=== PATIENT | female | born 1985 | race Caucasian/White ===

== ENCOUNTER 2017-04-14 22:28 | Emergency (ER) | payer OTHER ==
[~2017-04-14] VITALS: Ht 152.4 cm; Wt 113.4 kg
[~2017-04-14 22:28] MED LIST: ANAPROX DS550 MG PO; ANAPROX-DS550 MG PO; ATIVAN0.5 MG PO; BACTRIM DS 8001 TA1 PO; BENTYL10 MG PO; BP MED; CALCIUM500 MG PO; CIPRO500 MG PO; CLARITIN-D 10 M1 T21 PO; CLONAZEPAM0.5 M1 PO; CYCLOBENZAPRINE10 MG PO; DOXYCYCLINE HY100 M3 PO; DYAZIDE 25 MG-31 CAP PO; FLAGYL 500 MG500 MG PO; FLEXERIL5 MG PO; Fioricet 325 MG1 TAB PO; HYDROCODONE BIT1 T11 PO; IBU800 M1 PO; INDERAL80 MG PO; KEFLEX500 MG PO; MOTRIN800 MG PO; NAPROSYN500 MG PO; NILSTAT,MY500000 UN/ PO; ORTHO TRI-CYCLE1 TA1 PO; PENICILLIN VK500 MG PO; PERCOCET 325 MG1 TA2 PO; PREDNICOT10 MG PO; PREDNISONE20 MG PO; PROAIR HFA0.09 MG/AC INH; PROTONIX40 MG PO; PYRIDIUM200 M1 PO; REGLAN10 M1 PO; ROBITUSSIN DM 105 ML PO; SEPTRA DS 800 M1 TAB PO; TESSALON PERLE100 M1 PO; TRAMADOL HCL50 MG PO; ULTRAM50 MG PO; VICODIN 5/500 505 MG PO; VITAMIN D1000 IU PO; WELLBUTRIN SR150 MG PO; XANAX0.25 MG PO; ZITHROMAX Z PA250 MG PO; ZOLOFT PO; [UNRECOGNIZED DRUG - OTHER] PO
[2017-04-14] MEDS ORDERED: VITAMIN D50000 UNIT PO (22:43)
[2017-04-14] MEDS ORDERED: Motrin,Rufen800 MG PO (22:43)
[2017-04-14] MEDS ORDERED: BUPROPION HYDR100 MG PO (22:44)
[2017-04-14] MEDS ORDERED: PREDNISONE10 MG PO (23:43)
[2017-04-14] MEDS ORDERED: CYCLOBENZAPRINE10 MG PO (23:43)
== END 2017-04-14 23:44 | disposition home or self-care (01) ==
LOC: ED 22:28
DX: S13.9XXA Sprain of joints and ligaments of unspecified parts of neck, initial encounter (principal); F17.200 Nicotine dependence, unspecified, uncomplicated; Z98.890 Other specified postprocedural states; Z79.899 Other long term (current) drug therapy; Z88.0 Allergy status to penicillin; Z88.8 Allergy status to other drugs, medicaments and biological substances; X58.XXXA Exposure to other specified factors, initial encounter; Y93.89 Activity, other specified; Y92.89 Other specified places as the place of occurrence of the external cause; Y99.9 Unspecified external cause status

== ENCOUNTER 2017-04-23 02:47 | Emergency (ER) | payer OTHER ==
[~2017-04-23] VITALS: Ht 152.4 cm; Wt 104.3 kg
[~2017-04-23 02:47] MED LIST changes: +BUPROPION HYDR100 MG PO; +Motrin,Rufen800 MG PO; +PREDNISONE10 MG PO; +VITAMIN D50000 UNIT PO
[2017-04-23 03:18] LABS: BILIRUBIN NEGATIVE (NEGATIVE); BLOOD NEGATIVE (NEGATIVE); CLARITY SL CLOUDY (CLEAR); COLOR YELLOW (YELLOW); GLUCOSE NEGATIVE (NEGATIVE); KETONE NEGATIVE (NEGATIVE); LEUKO ESTERASE NEGATIVE (NEGATIVE); NITRITE NEGATIVE (NEGATIVE); PROTEIN NEGATIVE (NEGATIVE)
[2017-04-23 03:27] LABS: BACTERIA 3+; EPITHELIAL CELLS 30-35; URINE REFLEX COMMENT YES (NO)
== END 2017-04-23 04:47 | disposition home or self-care (01) ==
LOC: ED 02:47
PROVIDERS: Emergency Medicine
DX: R10.2 Pelvic and perineal pain (principal); F17.200 Nicotine dependence, unspecified, uncomplicated; Z98.890 Other specified postprocedural states; Z79.899 Other long term (current) drug therapy; Z88.0 Allergy status to penicillin; Z88.8 Allergy status to other drugs, medicaments and biological substances

== ENCOUNTER 2017-04-26 00:14 | Emergency (ER) | payer OTHER ==
[~2017-04-26] VITALS: Ht 162.5 cm; Wt 104.3 kg
[2017-04-26] MEDS ORDERED: BACTRIM DS 8001 TA1 PO (01:03)
[2017-04-26] MEDS ORDERED: DIFLUCAN150 MG PO (01:16)
== END 2017-04-26 01:21 | disposition home or self-care (01) ==
LOC: ED 00:14
DX: L02.415 Cutaneous abscess of right lower limb (principal); F17.200 Nicotine dependence, unspecified, uncomplicated; Z88.0 Allergy status to penicillin; Z88.8 Allergy status to other drugs, medicaments and biological substances; Z79.899 Other long term (current) drug therapy

== ENCOUNTER 2017-12-25 20:32 | Emergency (ER) | payer MEDICAID ==
[~2017-12-25] VITALS: Ht 152.4 cm; Wt 113.9 kg
[~2017-12-25 20:32] MED LIST changes: +DIFLUCAN150 MG PO
[2017-12-25] MEDS ORDERED: CEPHALEXIN500 M1 PO (21:02)
== END 2017-12-25 21:07 | disposition home or self-care (01) ==
LOC: ED 20:32
DX: O26.891 Other specified pregnancy related conditions, first trimester (principal); L05.01 Pilonidal cyst with abscess; Z98.890 Other specified postprocedural states; Z79.899 Other long term (current) drug therapy; Z3A.01 Less than 8 weeks gestation of pregnancy

== ENCOUNTER 2018-01-18 01:17 | Emergency (ER) | payer OTHER ==
[~2018-01-18] VITALS: Wt 112.0 kg
[~2018-01-18 01:17] MED LIST changes: +CEPHALEXIN500 M1 PO
[2018-01-18 01:46] LABS: BASO # 0.1 10*3/uL (0.0-0.1); BASO % 0.5 % (0.0-1.0); EOS # 0.1 10*3/uL (0.0-0.4); EOS % 0.6 % (1.0-4.0); HEMATOCRIT 39.1 % (37.0-47.0); HEMOGLOBIN 13.4 g/dl (12.0-16.0); LYMPH # 3.7 10*3/uL (1.3-4.4); MEAN CELL VOLUME 91.8 fl (81.0-99.0); MEAN CORPUSCULAR HGB 31.5 pg (27.0-31.0); MEAN CORPUSCULAR HGB CONC 34.3 g/dl (33.0-37.0); MEAN PLATELET VOLUME 9.4 fl (9.6-12.3); MONO # 0.7 10*3/uL (0.1-1.0); MONO % 4.8 % (3.0-9.0); NEUT # 10.6 10*3/uL (2.3-7.9); NEUT % 69.5 % (47.0-73.0); PLATELET COUNT AUTOMATED 296 10*3/uL (130-400); RED BLOOD COUNT 4.26 10*6/uL (4.10-5.10); RED CELL DISTRI WIDTH 12.5 % (0-14.5); WHITE BLOOD COUNT 15.3 10*3/uL (4.8-10.8)
[2018-01-18 01:58] LABS: BILIRUBIN NEGATIVE (NEGATIVE); BLOOD NEGATIVE (NEGATIVE); CLARITY CLEAR (CLEAR); COLOR YELLOW (YELLOW); GLUCOSE NEGATIVE (NEGATIVE); KETONE TRACE (NEGATIVE); LEUKO ESTERASE NEGATIVE (NEGATIVE); NITRITE NEGATIVE (NEGATIVE); SPECIFIC GRAVITY 1.025 (1.005-1.030); UROBILINOGEN 0.2 E.U./dl (0.2-1.0)
[2018-01-18 02:00] LABS: ALBUMIN 3.4 gm/dl (3.1-4.5); ALKALINE PHOSPHATASE 76 U/L (45-117); BUN 9 mg/dl (7-24); CHLORIDE 103 mmol/L (98-107); CREATININE 0.59 mg/dL (0.55-1.02); LIPASE 104 U/L (73-393); POTASSIUM 3.4 mmol/L (3.5-5.1); SGOT/AST 12 IU/L (3-35); SGPT/ALT 26 U/L (12-78); SODIUM 137 mmol/L (136-145)
[2018-01-18 02:10] LABS: EPITHELIAL CELLS 15-20
[2018-01-18 02:11] LABS: RBC 0-2 rbc/hpf (0-2)
== END 2018-01-18 03:28 | disposition home or self-care (01) ==
LOC: ED 01:17
PROVIDERS: Emergency Medicine Emergency Medical Services
DX: O26.891 Other specified pregnancy related conditions, first trimester (principal); F17.200 Nicotine dependence, unspecified, uncomplicated; Z79.899 Other long term (current) drug therapy; Z3A.09 9 weeks gestation of pregnancy

== ENCOUNTER 2018-03-14 03:39 | Emergency (ER) | payer OTHER ==
[~2018-03-14] VITALS: Ht 167.6 cm; Wt 104.3 kg
[2018-03-14 04:08] LABS: BASO # 0.1 10*3/uL (0.0-0.1); BASO % 0.4 % (0.0-1.0); EOS # 0.1 10*3/uL (0.0-0.4); EOS % 1.1 % (1.0-4.0); HEMATOCRIT 38.3 % (37.0-47.0); HEMOGLOBIN 12.9 g/dl (12.0-16.0); LYMPH # 2.4 10*3/uL (1.3-4.4); LYMPH % 18.2 % (27.0-41.0); MEAN CELL VOLUME 91.6 fl (81.0-99.0); MEAN CORPUSCULAR HGB 30.9 pg (27.0-31.0); MEAN CORPUSCULAR HGB CONC 33.7 g/dl (33.0-37.0); MEAN PLATELET VOLUME 9.5 fl (9.6-12.3); MONO # 0.6 10*3/uL (0.1-1.0); MONO % 4.9 % (3.0-9.0); NEUT # 9.7 10*3/uL (2.3-7.9); NEUT % 74.6 % (47.0-73.0); PLATELET COUNT AUTOMATED 230 10*3/uL (130-400); RED BLOOD COUNT 4.18 10*6/uL (4.10-5.10); RED CELL DISTRI WIDTH 12.1 % (0-14.5)
[2018-03-14] MEDS ORDERED: CLARITIN10 MG PO (04:32)
[2018-03-14 04:33] LABS: ALBUMIN 2.8 gm/dl (3.1-4.5); ALKALINE PHOSPHATASE 81 U/L (45-117); BUN 6 mg/dl (7-24); CHLORIDE 106 mmol/L (98-107); CREATININE 0.49 mg/dL (0.55-1.02); LIPASE 151 U/L (73-393); POTASSIUM 3.8 mmol/L (3.5-5.1); SGOT/AST 84 IU/L (3-35); SGPT/ALT 39 U/L (12-78); SODIUM 138 mmol/L (136-145); TOTAL PROTEIN 6.6 gm/dL (6.4-8.2); TROPONIN I < 0.015 ng/ml (<0.045)
[2018-03-14 04:50] LABS: BILIRUBIN 1+ (NEGATIVE); BLOOD NEGATIVE (NEGATIVE); CLARITY SL CLOUDY (CLEAR); COLOR YELLOW (YELLOW); GLUCOSE NEGATIVE (NEGATIVE); KETONE NEGATIVE (NEGATIVE); LEUKO ESTERASE NEGATIVE (NEGATIVE); NITRITE NEGATIVE (NEGATIVE)
[2018-03-14 04:59] LABS: EPITHELIAL CELLS 45-50
[2018-03-14 05:00] LABS: BACTERIA 1+
== END 2018-03-14 08:20 | disposition left against medical advice (07) ==
LOC: ED 03:39
PROVIDERS: Student in an Organized Health Care Education/Training Program
DX: O26.892 Other specified pregnancy related conditions, second trimester (principal); R10.11 Right upper quadrant pain; Z98.890 Other specified postprocedural states; Z79.899 Other long term (current) drug therapy; Z3A.17 17 weeks gestation of pregnancy

== ENCOUNTER 2018-05-26 16:52 | Emergency (ER) | payer OTHER ==
[~2018-05-26] VITALS: Ht 154.9 cm; Wt 99.8 kg
[~2018-05-26 16:52] MED LIST changes: +CLARITIN10 MG PO
[2018-05-26] MEDS ORDERED: PROVENTIL HFA6.7 GM INH (17:11)
[2018-05-26] MEDS ORDERED: ZITHROMAX250 MG PO (17:11)
== END 2018-05-26 17:21 | disposition home or self-care (01) ==
LOC: ED 16:52
DX: O99.512 Diseases of the respiratory system complicating pregnancy, second trimester (principal); J20.9 Acute bronchitis, unspecified; O99.332 Smoking (tobacco) complicating pregnancy, second trimester; F17.200 Nicotine dependence, unspecified, uncomplicated; Z98.890 Other specified postprocedural states; Z79.899 Other long term (current) drug therapy; Z3A.24 24 weeks gestation of pregnancy

== ENCOUNTER 2018-06-07 05:33 | Emergency (ER) | payer OTHER ==
[~2018-06-07] VITALS: Ht 152.4 cm; Wt 122.5 kg
[~2018-06-07 05:33] MED LIST changes: +PROVENTIL HFA6.7 GM INH; +ZITHROMAX250 MG PO
[2018-06-07 06:09] LABS: BASO # 0.1 10*3/uL (0.0-0.1); BASO % 0.4 % (0.0-1.0); EOS # 0.2 10*3/uL (0.0-0.4); EOS % 1.1 % (1.0-4.0); HEMOGLOBIN 11.2 g/dl (12.0-16.0); LYMPH # 2.7 10*3/uL (1.3-4.4); MEAN CELL VOLUME 95.2 fl (81.0-99.0); MEAN CORPUSCULAR HGB 31.4 pg (27.0-31.0); MEAN CORPUSCULAR HGB CONC 32.9 g/dl (33.0-37.0); MEAN PLATELET VOLUME 9.8 fl (9.6-12.3); MONO # 0.9 10*3/uL (0.1-1.0); MONO % 6.1 % (3.0-9.0); NEUT # 11.2 10*3/uL (2.3-7.9); NEUT % 73.5 % (47.0-73.0); PLATELET COUNT AUTOMATED 301 10*3/uL (130-400); RED BLOOD COUNT 3.57 10*6/uL (4.10-5.10); RED CELL DISTRI WIDTH 12.9 % (0-14.5); WHITE BLOOD COUNT 15.2 10*3/uL (4.8-10.8)
[2018-06-07 06:25] LABS: ALBUMIN 2.4 gm/dl (3.1-4.5); ALKALINE PHOSPHATASE 105 U/L (45-117); BUN 8 mg/dl (7-24); CHLORIDE 105 mmol/L (98-107); CREATININE 0.62 mg/dL (0.55-1.02); LIPASE 619 U/L (73-393); POTASSIUM 3.5 mmol/L (3.5-5.1); SGOT/AST 28 IU/L (3-35); SGPT/ALT 20 U/L (12-78); SODIUM 140 mmol/L (136-145); TOTAL PROTEIN 6.1 gm/dL (6.4-8.2)
== END 2018-06-07 07:45 | disposition home or self-care (01) ==
LOC: ED 05:33
PROVIDERS: Emergency Medicine Emergency Medical Services
DX: O26.612 Liver and biliary tract disorders in pregnancy, second trimester (principal); K80.50 Calculus of bile duct without cholangitis or cholecystitis without obstruction; Z3A.28 28 weeks gestation of pregnancy; Z79.899 Other long term (current) drug therapy

== ENCOUNTER 2018-07-31 15:40 | Emergency (ER) | payer OTHER ==
[~2018-07-31] VITALS: Ht 152.4 cm; Wt 122.5 kg
[2018-09-12] MEDS ORDERED: ZESTORETIC 10-1 EACH PO (10:37)
[2018-09-14] MEDS ORDERED: NORCO 5-325 TA1 EACH PO (10:31)
[2018-09-15] MEDS ORDERED: CIPRO500 MG PO (22:52)
[2018-09-15] MEDS ORDERED: FLAGYL500 MG PO (22:52)
[2018-09-15] MEDS ORDERED: DIFLUCAN150 MG PO (23:39)
== END 2018-07-31 16:17 | disposition home or self-care (01) ==
LOC: ED 15:40
DX: O26.893 Other specified pregnancy related conditions, third trimester (principal); R10.31 Right lower quadrant pain; Z3A.36 36 weeks gestation of pregnancy; Z90.49 Acquired absence of other specified parts of digestive tract; Z79.899 Other long term (current) drug therapy

== ENCOUNTER 2018-08-24 21:05 | Emergency (ER) | payer OTHER ==
[~2018-08-24] VITALS: Ht 157.4 cm; Wt 113.4 kg
[2018-08-24 21:46] LABS: BASO # 0.1 10*3/uL (0.0-0.1); BASO % 0.4 % (0.0-1.0); EOS # 0.1 10*3/uL (0.0-0.4); EOS % 0.5 % (1.0-4.0); HEMOGLOBIN 11.1 g/dl (12.0-16.0); LYMPH % 13.7 % (27.0-41.0); MEAN CELL VOLUME 90.9 fl (81.0-99.0); MEAN CORPUSCULAR HGB 29.7 pg (27.0-31.0); MEAN CORPUSCULAR HGB CONC 32.6 g/dl (33.0-37.0); MONO # 0.5 10*3/uL (0.1-1.0); MONO % 3.5 % (3.0-9.0); PLATELET COUNT AUTOMATED 374 10*3/uL (130-400); RED BLOOD COUNT 3.74 10*6/uL (4.10-5.10); RED CELL DISTRI WIDTH 14.6 % (0-14.5); WHITE BLOOD COUNT 14.8 10*3/uL (4.8-10.8)
[2018-08-24 22:03] LABS: ALBUMIN 2.8 gm/dl (3.1-4.5); ALKALINE PHOSPHATASE 171 U/L (45-117); BUN 10 mg/dl (7-24); CHLORIDE 105 mmol/L (98-107); CREATININE 0.99 mg/dL (0.55-1.02); LIPASE 152 U/L (73-393); POTASSIUM 3.1 mmol/L (3.5-5.1); SGOT/AST 51 IU/L (3-35); SGPT/ALT 45 U/L (12-78); SODIUM 142 mmol/L (136-145); TOTAL PROTEIN 6.6 gm/dL (6.4-8.2)
[2018-08-25 00:04] LABS: BILIRUBIN NEGATIVE (NEGATIVE); BLOOD 3+ (NEGATIVE); CLARITY CLEAR (CLEAR); COLOR YELLOW (YELLOW); GLUCOSE NEGATIVE (NEGATIVE); KETONE NEGATIVE (NEGATIVE); LEUKO ESTERASE NEGATIVE (NEGATIVE); NITRITE NEGATIVE (NEGATIVE); UROBILINOGEN 0.2 E.U./dl (0.2-1.0)
[2018-08-25 00:15] LABS: EPITHELIAL CELLS 20-25
[2018-08-25 00:16] LABS: RBC 31-40 rbc/hpf (0-2)
[2018-09-12] MEDS ORDERED: ZESTORETIC 10-1 EACH PO (10:37)
[2018-09-14] MEDS ORDERED: NORCO 5-325 TA1 EACH PO (10:31)
[2018-09-15] MEDS ORDERED: FLAGYL500 MG PO (22:52)
[2018-09-15] MEDS ORDERED: CIPRO500 MG PO (22:52)
[2018-09-15] MEDS ORDERED: DIFLUCAN150 MG PO (23:39)
== END 2018-08-25 01:15 | disposition left against medical advice (07) ==
LOC: ED 21:05
PROVIDERS: Emergency Medicine Emergency Medical Services
DX: K80.00 Calculus of gallbladder with acute cholecystitis without obstruction (principal); Z79.899 Other long term (current) drug therapy

== ENCOUNTER 2018-09-04 01:16 | Emergency (ER) | payer OTHER ==
[~2018-09-04] VITALS: Wt 113.4 kg
[2018-09-04] MEDS ORDERED: COLACE100 MG PO (01:42)
[2018-09-04] MEDS ORDERED: IBU600 M1 PO (01:42)
[2018-09-04] MEDS ORDERED: HYDR25T PO (01:43)
[2018-09-04] MEDS ORDERED: REQUIP1 M1 PO (01:43)
[2018-09-04] MEDS ORDERED: VENTOLIN 02.5 MG/3 M INH (01:43)
[2018-09-04] MEDS ORDERED: TRAMADOL HCL50 MG PO (01:43)
[2018-09-04] MEDS ORDERED: ZESTRIL20 MG PO (01:43)
[2018-09-04 01:58] LABS: BASO # 0.1 10*3/uL (0.0-0.1); BASO % 0.5 % (0.0-1.0); EOS # 0.1 10*3/uL (0.0-0.4); EOS % 1.5 % (1.0-4.0); HEMATOCRIT 32.8 % (37.0-47.0); HEMOGLOBIN 10.7 g/dl (12.0-16.0); MEAN CELL VOLUME 90.9 fl (81.0-99.0); MEAN CORPUSCULAR HGB 29.6 pg (27.0-31.0); MEAN CORPUSCULAR HGB CONC 32.6 g/dl (33.0-37.0); MEAN PLATELET VOLUME 9.6 fl (9.6-12.3); MONO # 0.4 10*3/uL (0.1-1.0); MONO % 4.6 % (3.0-9.0); NEUT # 6.6 10*3/uL (2.3-7.9); PLATELET COUNT AUTOMATED 438 10*3/uL (130-400); RED BLOOD COUNT 3.61 10*6/uL (4.10-5.10); RED CELL DISTRI WIDTH 14.4 % (0-14.5); WHITE BLOOD COUNT 9.3 10*3/uL (4.8-10.8)
[2018-09-04 02:21] LABS: ALBUMIN 3.1 gm/dl (3.1-4.5); ALKALINE PHOSPHATASE 244 U/L (45-117); BUN 7 mg/dl (7-24); CHLORIDE 106 mmol/L (98-107); CREATININE 0.68 mg/dL (0.55-1.02); LIPASE 122 U/L (73-393); POTASSIUM 3.3 mmol/L (3.5-5.1); SGOT/AST 54 IU/L (3-35); SGPT/ALT 82 U/L (12-78); SODIUM 147 mmol/L (136-145); TOTAL PROTEIN 6.1 gm/dL (6.4-8.2)
[2018-09-04 02:57] LABS: BILIRUBIN 1+ (NEGATIVE); BLOOD 3+ (NEGATIVE); CLARITY CLOUDY (CLEAR); COLOR ORANGE (YELLOW); GLUCOSE NEGATIVE (NEGATIVE); KETONE TRACE (NEGATIVE); LEUKO ESTERASE 3+ (NEGATIVE); NITRITE NEGATIVE (NEGATIVE); SPECIFIC GRAVITY 1.015 (1.005-1.030)
[2018-09-04 02:58] LABS: RBC TNTC rbc/hpf (0-2); WBC TNTC wbc/hpf (0-5)
[2018-09-04] MEDS ORDERED: CIPRO500 MG PO (04:16)
[2018-09-12] MEDS ORDERED: ZESTORETIC 10-1 EACH PO (10:37)
[2018-09-14] MEDS ORDERED: NORCO 5-325 TA1 EACH PO (10:31)
[2018-09-15] MEDS ORDERED: CIPRO500 MG PO (22:52)
[2018-09-15] MEDS ORDERED: FLAGYL500 MG PO (22:52)
[2018-09-15] MEDS ORDERED: DIFLUCAN150 MG PO (23:39)
== END 2018-09-04 04:15 | disposition home or self-care (01) ==
LOC: ED 01:16
PROVIDERS: Emergency Medicine
DX: O86.20 Urinary tract infection following delivery, unspecified (principal); O99.63 Diseases of the digestive system complicating the puerperium; K82.9 Disease of gallbladder, unspecified; Z98.890 Other specified postprocedural states; Z79.899 Other long term (current) drug therapy

== ENCOUNTER → 2018-09-14 | Day surgery (SDC) | payer OTHER ==
[2018-09-12 10:32] VITALS: BP 142/74
[2018-09-12 11:54] LABS: BASO # 0.1 10*3/uL (0.0-0.1); BASO % 0.7 % (0.0-1.0); EOS # 0.2 10*3/uL (0.0-0.4); EOS % 2.2 % (1.0-4.0); HEMATOCRIT 37.8 % (37.0-47.0); LYMPH # 2.7 10*3/uL (1.3-4.4); LYMPH % 24.4 % (27.0-41.0); MEAN CELL VOLUME 91.1 fl (81.0-99.0); MEAN CORPUSCULAR HGB 28.9 pg (27.0-31.0); MEAN CORPUSCULAR HGB CONC 31.7 g/dl (33.0-37.0); MEAN PLATELET VOLUME 9.3 fl (9.6-12.3); MONO # 0.6 10*3/uL (0.1-1.0); MONO % 5.1 % (3.0-9.0); NEUT # 7.5 10*3/uL (2.3-7.9); NEUT % 67.2 % (47.0-73.0); PLATELET COUNT AUTOMATED 384 10*3/uL (130-400); RED BLOOD COUNT 4.15 10*6/uL (4.10-5.10); RED CELL DISTRI WIDTH 14.4 % (0-14.5); WHITE BLOOD COUNT 11.2 10*3/uL (4.8-10.8)
[2018-09-12 11:59] LABS: BILIRUBIN NEGATIVE (NEGATIVE); BLOOD 3+ (NEGATIVE); CLARITY CLOUDY (CLEAR); COLOR YELLOW (YELLOW); GLUCOSE NEGATIVE (NEGATIVE); KETONE NEGATIVE (NEGATIVE); LEUKO ESTERASE TRACE (NEGATIVE); NITRITE NEGATIVE (NEGATIVE); UROBILINOGEN 0.2 E.U./dl (0.2-1.0)
[2018-09-12 12:17] LABS: ACT PARTIAL THROMBO TIME 22.1 SECONDS (20.8-31.5); INTERNATIONAL NORM RATIO 0.9 (2.0-3.5)
[2018-09-12 12:20] LABS: ALBUMIN 3.3 gm/dl (3.1-4.5); ALKALINE PHOSPHATASE 203 U/L (45-117); BILIRUBIN, DIRECT 0.2 mg/dL (0.0-0.2); BUN 14 mg/dl (7-24); CHLORIDE 102 mmol/L (98-107); CREATININE 0.77 mg/dL (0.55-1.02); POTASSIUM 3.3 mmol/L (3.5-5.1); SGOT/AST 34 IU/L (3-35); SGPT/ALT 60 U/L (12-78); SODIUM 140 mmol/L (136-145); TOTAL PROTEIN 7.1 gm/dL (6.4-8.2)
[2018-09-12 12:37] LABS: EPITHELIAL CELLS 50-100; WBC 21-30 wbc/hpf (0-5)
[2018-09-12 12:40] LABS: BACTERIA 1+
[~2018-09-14] VITALS: Ht 165.1 cm; Wt 113.4 kg
[~2018-09-14] MED LIST changes: +COLACE100 MG PO; +FLAGYL500 MG PO; +HYDR25T PO; +IBU600 M1 PO; +NORCO 5-325 TA1 EACH PO; +REQUIP1 M1 PO; +VENTOLIN 02.5 MG/3 M INH; +ZESTORETIC 10-1 EACH PO; +ZESTRIL20 MG PO; +ZOSYN 3.373.375 GM/5 IV
--- NOTE | ~2018-09-14 | O ---
[place], [place] OPERATIVE NOTE NAME: OMAR HENNING [facility] #: [id number] UNIT #: [id number] ROOM: DOCTOR: JONATHAN CHÁVEZ MD BIRTHDATE: [birth year] DOS: 09/14/2018 PREOPERATIVE DIAGNOSIS: Symptomatic gallstones. POSTOPERATIVE DIAGNOSIS: Symptomatic gallstones. PROCEDURE: Laparoscopic cholecystectomy. SURGEON: Jonathan Chávez M.D. XRAY TECH: TIP. ANESTHESIA: General with endotracheal intubation. INDICATIONS: This is a 32-year-old lady who is here for a laparoscopic cholecystectomy for symptomatic gallstones. The procedure and its complications were explained to the patient in detail preoperatively. Complications that were discussed included, but were not limited to bleeding, infection, hematoma/seroma/abscess formation, prolonged postoperative pain, damage to lying vital structures, biloma formation, inadvertent injury to common bile duct, and incisional hernia formation. She agreed to proceed. DESCRIPTION OF PROCEDURE: After identifying the patient, the patient was brought to the operating suite and laid in the supine position. After induction of general anesthesia, a timeout procedure was called and the parts were then painted and draped in the usual sterile fashion. An incision above the umbilicus in a transverse fashion was made. The skin and the subcutaneous tissue were incised in the line of the incision. The fascia was incised vertically and 2 stay sutures with 0 Vicryl were taken on either side. The peritoneum was opened and a 12 mm Laverne port was introduced into the peritoneal cavity. A pneumoperitoneum was created. Under direct vision, an epigastric incision of 10 mm and two 5 mm incisions were made in the right upper quadrant and appropriate size ports were introduced. The gallbladder was retracted superiorly and laterally. It was decided to remove the gallbladder with the fundus first technique. The peritoneum around the gallbladder was taken down with the electrocautery and it was freed in all directions and away from the liver bed. The cystic duct was found to be really small and the cystic artery was adequately identified and clipped and cut between the first and the second clips. Because the cystic duct was short and it was decided to remove the gallbladder by applying vascular stapler across in the region of the neck of the gallbladder in order to safeguard the common bile duct from injury. After this was performed, the gallbladder was placed in an EndoCatch bag and removed from the peritoneal cavity and sent for histopathological diagnosis. Hemostasis was achieved in the liver bed and saline was used for irrigation. After saline was sucked away hemostasis was confirmed. At this point, the right upper quadrant and the epigastric ports were removed under direct vision and there was no bleeding seen. The umbilical port was also removed and the 2 stay sutures were tied together and an additional 0 Vicryl stitch was taken to close the fascia. Local anesthesia was infiltrated in all the 4 incisions and the edges of the skin on all the four incisions were approximated with the help of 4-0 Vicryl in [place], [place] OPERATIVE NOTE NAME: OMAR HENNING UNIT #: [id number] ROOM: DOCTOR: JONATHAN CHÁVEZ MD BIRTHDATE: [birth year] a subcuticular running fashion. Dressings were placed in all the 4 incisions and the patient was extubated uneventfully and brought back to the recovery room in stable fashion. There were no complications. Blood loss was approximately [address] Jonathan Chávez, the attending surgeon, was present throughout the operating case. Jonathan Chávez MD CM:OPRECORD:OPERATIVE NOTE [id number] JONATHAN CHÁVEZ MD 09/14/18 1015 interface
[2018-09-14 07:20] VITALS: BP 128/69
[2018-09-14 09:46] VITALS: BP 122/74
[2018-09-14 10:00] VITALS: BP 108/51
[2018-09-14 10:15] VITALS: BP 114/40
[2018-09-14 10:30] VITALS: BP 114/83
== END | disposition home or self-care (01) ==
LOC: SDC 09-12 10:15
PROVIDERS: Surgery
DX: K80.10 Calculus of gallbladder with chronic cholecystitis without obstruction (principal); I10 Essential (primary) hypertension; K21.9 Gastro-esophageal reflux disease without esophagitis; G43.909 Migraine, unspecified, not intractable, without status migrainosus; F17.210 Nicotine dependence, cigarettes, uncomplicated; F32.9 Major depressive disorder, single episode, unspecified; Z90.49 Acquired absence of other specified parts of digestive tract; Z98.890 Other specified postprocedural states; Z88.0 Allergy status to penicillin; Z88.8 Allergy status to other drugs, medicaments and biological substances

== ENCOUNTER 2018-09-16 10:53 | Inpatient (IN) | payer OTHER ==
[~2018-09-16] VITALS: Ht 154.9 cm; Wt 114.5 kg
--- NOTE | ~2018-09-16 | CON ---
[place], [place] REPORT OF CONSULTATION NAME: OMAR HENNING UNIT #: [id number] ROOM: 401 DOCTOR: RODOLFO PATELISI BIRTHDATE: [birth year] DOS: 09/19/2018 HISTORY OF PRESENT ILLNESS: This is a 32-year-old patient who presented with chief complaint of abdominal pain, epigastric. Abnormal LFTs, status post cholecystectomy 3 days ago. The patient has been kept in the hospital investigated. CT scan showed some ascites around the liver, status post paracentesis diagnosed to be bile component consistent with a biliary leak, status post cholecystectomy. We have been asked for assessment of the patient regarding ERCP and biliary stent and further assessment. PAST MEDICAL HISTORY: Associated hypertension, obesity, protein-calorie malnutrition, nicotine dependency, gastroesophageal reflux. PAST SURGICAL HISTORY: Recent cholecystectomy 3 days ago and . SOCIAL HISTORY: Smoker, nonalcohol consumer. FAMILY HISTORY: Hyperlipidemia. ALLERGIES: No known medications. MEDICATIONS: List was reviewed including pantoprazole, ibuprofen and albuterol. REVIEW OF SYSTEMS: HEAD, EYES, EARS, NOSE, AND THROAT: Denies double vision, blurred vision. RESPIRATORY: Admits some shortness of breath. CARDIOVASCULAR: Denies acute chest pain. DIGESTIVE SYSTEM: Nauseated, epigastric distress, abdominal pain, abnormal LFTs, all have been recognized. PHYSICAL EXAMINATION: VITAL SIGNS: Stable. HEAD, EYES, EARS, NOSE, AND THROAT: Head normocephalic, nontraumatic. Eyes: Pupils round, reactive. Sclerae nonicteric. Conjunctivae pink. NECK: Supple, no thyromegaly, no cervical lymphadenopathy. CHEST: Symmetric anatomy, equal expansion. No wheeze, no rhonchi. HEART: Normal sinus rhythm, no gallop, no murmur. ABDOMEN: Obese, soft. No hepato-organomegaly, laparoscopic scopes entry site was noticed. Bowel sounds present. EXTREMITIES: No cyanosis, no pedal edema. NEUROLOGIC: Alert, oriented to time, place, person. IMPRESSION: Post-cholecystectomy suspected biliary leak. OTHER ADJUNCTIVE DIAGNOSES: Associated hypertension, obesity, protein-calorie malnutrition, nicotine dependency, gastroesophageal reflux. PLAN AND DISCUSSION: We will proceed with ERCP today. [place], [place] REPORT OF CONSULTATION NAME: OMAR HENNING UNIT #: [id number] ROOM: [facility] DOCTOR: RODOLFO PATEL,ISI BIRTHDATE: [birth year] ISI REYNOLDS MD CM:CONSTR:REPORT OF CONSULTATION [id number] SELINA WATSON MIS.R
--- NOTE | ~2018-09-16 | PROC NOTE ---
[place], [place] PROCEDURE NOTE NAME: [id number] UNIT #: [id number] ROOM: 401 DOCTOR: ISI REYNOLDS MD BIRTHDATE: [birth year] DATE: 09/19/18 INDICATIONS: The patient is a 32-year-old patient who presented with chief complaint of abdominal pain, abnormal liver function test, concerned about a biliary leak, undergoing investigation. PROCEDURE: Today's procedure part of investigation is ERCP plus papillotomy plus balloon sweep of common duct for minimal sludge plus common duct stent. PREMEDICATION: Propofol by Anesthesia. SCOPE: Olympus side-viewing duodenum scope. REPORT: After putting the patient in left lateral position and application of lubricant to the scope, the scope was introduced; thereafter, under direct visualization, advanced through the length of esophagus into gastric pouch in front of the ampulla of Vater. Selective cannulization of common duct was undertaken. Guidewire was advanced to left hepatic radicles. Papillotomy was performed at 1 o'clock and a balloon was introduced into the common duct, sweep and dye was injected under mild pressure, leak of dye from the stump of the cystic duct was noticed. Multiple stones and cystic duct noticed. A biliary leak is significant, stent size 10 x 7 was deployed. Photographic series and radiologic documentation was done. The patient extubated, tolerated procedure well. IMPRESSION AND PLAN: Multiple retained cystic duct stones and biliary leak from anastomotic site, status post recent cholecystectomy. PLAN AND DISCUSSION: I will discuss with Dr. Chávez to see if we have to transfer the patient, placed for further surgeries that may be needed for removal of residual cystic duct if possible as well as exploration of common duct, if needed around the same area and correction of leak beyond the stent. ISI REYNOLDS MD CM:PROCNOTE:PROCEDURE NOTE [id number] ISI REYNOLDS MD
[~2018-09-16 10:53] MED LIST changes: -ZOSYN 3.373.375 GM/5 IV
[2018-09-16 10:54] VITALS: BP 133/56
[2018-09-16 11:35] LABS: BASO # 0.1 10*3/uL (0.0-0.1); BASO % 0.5 % (0.0-1.0); EOS # 0.1 10*3/uL (0.0-0.4); EOS % 0.7 % (1.0-4.0); HEMATOCRIT 36.6 % (37.0-47.0); HEMOGLOBIN 11.6 g/dl (12.0-16.0); LYMPH # 1.5 10*3/uL (1.3-4.4); LYMPH % 15.8 % (27.0-41.0); MEAN CELL VOLUME 90.1 fl (81.0-99.0); MEAN CORPUSCULAR HGB 28.6 pg (27.0-31.0); MEAN CORPUSCULAR HGB CONC 31.7 g/dl (33.0-37.0); MEAN PLATELET VOLUME 8.8 fl (9.6-12.3); MONO # 0.5 10*3/uL (0.1-1.0); MONO % 5.4 % (3.0-9.0); NEUT # 7.3 10*3/uL (2.3-7.9); NEUT % 77.2 % (47.0-73.0); PLATELET COUNT AUTOMATED 365 10*3/uL (130-400); RED BLOOD COUNT 4.06 10*6/uL (4.10-5.10); RED CELL DISTRI WIDTH 14.5 % (0-14.5); WHITE BLOOD COUNT 9.5 10*3/uL (4.8-10.8)
[2018-09-16 11:51] LABS: ACT PARTIAL THROMBO TIME 21.1 SECONDS (20.8-31.5); INTERNATIONAL NORM RATIO 0.9 (2.0-3.5)
[2018-09-16 11:56] LABS: ALBUMIN 3.3 gm/dl (3.1-4.5); ALKALINE PHOSPHATASE 437 U/L (45-117); BUN 10 mg/dl (7-24); CHLORIDE 102 mmol/L (98-107); CREATININE 0.75 mg/dL (0.55-1.02); LIPASE 312 U/L (73-393); POTASSIUM 3.5 mmol/L (3.5-5.1); SGOT/AST 731 IU/L (3-35); SGPT/ALT 570 U/L (12-78); SODIUM 140 mmol/L (136-145); TOTAL PROTEIN 6.8 gm/dL (6.4-8.2)
[2018-09-16 12:19] VITALS: BP 134/78
[2018-09-16 13:00] VITALS: BP 133/67
[2018-09-16 16:00] VITALS: BP 129/72
[2018-09-16 20:00] VITALS: BP 123/72
[2018-09-17] VITALS: BP 112/53
[2018-09-17 06:45] LABS: BASO % 0.3 % (0.0-1.0); EOS # 0.1 10*3/uL (0.0-0.4); EOS % 0.5 % (1.0-4.0); HEMATOCRIT 36.1 % (37.0-47.0); HEMOGLOBIN 11.2 g/dl (12.0-16.0); LYMPH # 1.3 10*3/uL (1.3-4.4); LYMPH % 11.2 % (27.0-41.0); MEAN CELL VOLUME 91.4 fl (81.0-99.0); MEAN CORPUSCULAR HGB 28.4 pg (27.0-31.0); MEAN PLATELET VOLUME 9.4 fl (9.6-12.3); MONO # 0.3 10*3/uL (0.1-1.0); MONO % 2.6 % (3.0-9.0); NEUT # 9.8 10*3/uL (2.3-7.9); PLATELET COUNT AUTOMATED 356 10*3/uL (130-400); RED BLOOD COUNT 3.95 10*6/uL (4.10-5.10); RED CELL DISTRI WIDTH 14.4 % (0-14.5); WHITE BLOOD COUNT 11.6 10*3/uL (4.8-10.8)
[2018-09-17 06:58] LABS: ALBUMIN 2.9 gm/dl (3.1-4.5); ALKALINE PHOSPHATASE 477 U/L (45-117); BUN 9 mg/dl (7-24); CHLORIDE 103 mmol/L (98-107); CHOLESTEROL 144 mg/dL (<200); CREATININE 0.66 mg/dL (0.55-1.02); FREE T4 1.41 ng/dl (0.76-1.46); HDL CHOLESTEROL 24 mg/dl (40-60); LDL CHOLESTEROL 90 mg/dL (9-159); PHOSPHOROUS 3.4 mg/dL (2.5-4.9); POTASSIUM 3.5 mmol/L (3.5-5.1); SGOT/AST 382 IU/L (3-35); SGPT/ALT 562 U/L (12-78); SODIUM 139 mmol/L (136-145); TOTAL PROTEIN 6.1 gm/dL (6.4-8.2); TRIGLYCERIDES 150 mg/dl (<150); VLDL CHOLESTEROL 30 mg/dL (6-40)
[2018-09-17 07:04] LABS: THYROID STIM HORMONE (HS) 0.424 uIU/ml (0.358-4.75)
[2018-09-17 08:00] VITALS: BP 112/62
[2018-09-17 08:03] LABS: VITAMIN D, 25-HYDROXY 23.2 ng/mL (30-100)
[2018-09-17 12:00] VITALS: BP 128/63
[2018-09-17 16:00] VITALS: BP 130/69
[2018-09-17 20:00] VITALS: BP 112/75
[2018-09-18] VITALS: BP 121/59
[2018-09-18 06:53] LABS: BASO % 0.3 % (0.0-1.0); EOS # 0.1 10*3/uL (0.0-0.4); EOS % 0.8 % (1.0-4.0); HEMATOCRIT 36.2 % (37.0-47.0); HEMOGLOBIN 11.2 g/dl (12.0-16.0); LYMPH # 1.6 10*3/uL (1.3-4.4); LYMPH % 13.8 % (27.0-41.0); MEAN CORPUSCULAR HGB 28.1 pg (27.0-31.0); MEAN CORPUSCULAR HGB CONC 30.9 g/dl (33.0-37.0); MEAN PLATELET VOLUME 9.6 fl (9.6-12.3); MONO # 0.5 10*3/uL (0.1-1.0); MONO % 4.6 % (3.0-9.0); NEUT # 9.5 10*3/uL (2.3-7.9); PLATELET COUNT AUTOMATED 384 10*3/uL (130-400); RED BLOOD COUNT 3.98 10*6/uL (4.10-5.10); RED CELL DISTRI WIDTH 14.9 % (0-14.5); WHITE BLOOD COUNT 11.8 10*3/uL (4.8-10.8)
[2018-09-18 07:10] LABS: ALBUMIN 2.8 gm/dl (3.1-4.5); ALKALINE PHOSPHATASE 512 U/L (45-117); BUN 6 mg/dl (7-24); CHLORIDE 103 mmol/L (98-107); CREATININE 0.56 mg/dL (0.55-1.02); POTASSIUM 3.3 mmol/L (3.5-5.1); SGOT/AST 183 IU/L (3-35); SGPT/ALT 432 U/L (12-78); SODIUM 139 mmol/L (136-145); TOTAL PROTEIN 6.3 gm/dL (6.4-8.2)
[2018-09-18 08:00] VITALS: BP 114/56
[2018-09-18 11:35] VITALS: BP 155/68
[2018-09-18 16:00] VITALS: BP 110/57
[2018-09-18 20:00] VITALS: BP 114/48
[2018-09-19] VITALS (8 sets, daily range): BP systolic 124–147; BP diastolic 45–89
[2018-09-19 06:22] LABS: BASO # 0.1 10*3/uL (0.0-0.1); BASO % 0.5 % (0.0-1.0); EOS # 0.1 10*3/uL (0.0-0.4); EOS % 1.1 % (1.0-4.0); HEMATOCRIT 31.3 % (37.0-47.0); HEMOGLOBIN 9.6 g/dl (12.0-16.0); LYMPH # 1.7 10*3/uL (1.3-4.4); LYMPH % 17.8 % (27.0-41.0); MEAN CELL VOLUME 91.3 fl (81.0-99.0); MEAN CORPUSCULAR HGB CONC 30.7 g/dl (33.0-37.0); MEAN PLATELET VOLUME 9.5 fl (9.6-12.3); MONO # 0.5 10*3/uL (0.1-1.0); MONO % 5.4 % (3.0-9.0); NEUT # 7.1 10*3/uL (2.3-7.9); NEUT % 74.8 % (47.0-73.0); PLATELET COUNT AUTOMATED 341 10*3/uL (130-400); RED BLOOD COUNT 3.43 10*6/uL (4.10-5.10); RED CELL DISTRI WIDTH 15.2 % (0-14.5); WHITE BLOOD COUNT 9.5 10*3/uL (4.8-10.8)
[2018-09-19 06:36] LABS: ALBUMIN 2.4 gm/dl (3.1-4.5); BUN 8 mg/dl (7-24); CHLORIDE 108 mmol/L (98-107); POTASSIUM 3.7 mmol/L (3.5-5.1); SGOT/AST 49 IU/L (3-35); SGPT/ALT 245 U/L (12-78); SODIUM 142 mmol/L (136-145); TOTAL PROTEIN 5.9 gm/dL (6.4-8.2)
[2018-09-19 06:39] LABS: ALKALINE PHOSPHATASE 370 U/L (45-117); CREATININE 0.47 mg/dL (0.55-1.02)
[2018-09-19] MEDS ORDERED: ZOSYN 3.373.375 GM/5 IV (15:27)
[2018-09-20] VITALS: BP 153/79
[2018-09-20 07:06] LABS: BASO % 0.1 % (0.0-1.0); HEMATOCRIT 34.1 % (37.0-47.0); HEMOGLOBIN 10.6 g/dl (12.0-16.0); LYMPH # 1.6 10*3/uL (1.3-4.4); LYMPH % 11.8 % (27.0-41.0); MEAN CELL VOLUME 90.7 fl (81.0-99.0); MEAN CORPUSCULAR HGB 28.2 pg (27.0-31.0); MEAN CORPUSCULAR HGB CONC 31.1 g/dl (33.0-37.0); MEAN PLATELET VOLUME 9.1 fl (9.6-12.3); MONO # 0.8 10*3/uL (0.1-1.0); MONO % 5.6 % (3.0-9.0); NEUT # 11.2 10*3/uL (2.3-7.9); PLATELET COUNT AUTOMATED 378 10*3/uL (130-400); RED BLOOD COUNT 3.76 10*6/uL (4.10-5.10); RED CELL DISTRI WIDTH 14.9 % (0-14.5); WHITE BLOOD COUNT 13.6 10*3/uL (4.8-10.8)
[2018-09-20 08:00] VITALS: BP 142/95
== END 2018-09-20 11:33 | disposition short-term general hospital (02) | DRG 776 ==
LOC: ED 10:53 → 4E 12:21 → EDHOLD 12:21 → 4E 12:54
PROVIDERS: Emergency Medicine; Internal Medicine; Student in an Organized Health Care Education/Training Program; Surgery
PROC: 0W9G30Z Drainage of Peritoneal Cavity with Drainage Device, Percutaneous Approach (ICD-10-PCS; 2018-09-18)
PROC: 0F788DZ Dilation of Cystic Duct with Intraluminal Device, Via Natural or Artificial Opening Endoscopic (ICD-10-PCS; principal; 2018-09-19)
PROC: BF101ZZ Fluoroscopy of Bile Ducts using Low Osmolar Contrast (ICD-10-PCS; 2018-09-19)
DX: O99.63 Diseases of the digestive system complicating the puerperium (principal); E43 Unspecified severe protein-calorie malnutrition; K91.89 Other postprocedural complications and disorders of digestive system; E87.2 Acidosis; R18.8 Other ascites; Z68.42 Body mass index [BMI] 45.0-49.9, adult; O99.13 Other diseases of the blood and blood-forming organs and certain disorders involving the immune mechanism complicating the puerperium; R10.9 Unspecified abdominal pain; D64.9 Anemia, unspecified; D72.810 Lymphocytopenia; O99.335 Smoking (tobacco) complicating the puerperium; O99.03 Anemia complicating the puerperium; F17.210 Nicotine dependence, cigarettes, uncomplicated; K83.8 Other specified diseases of biliary tract; K21.9 Gastro-esophageal reflux disease without esophagitis; E66.01 Morbid (severe) obesity due to excess calories; O99.215 Obesity complicating the puerperium; O90.89 Other complications of the puerperium, not elsewhere classified; G89.18 Other acute postprocedural pain; R73.9 Hyperglycemia, unspecified; R74.0 Nonspecific elevation of levels of transaminase and lactic acid dehydrogenase [LDH]; O16.5 Unspecified maternal hypertension, complicating the puerperium; J30.2 Other seasonal allergic rhinitis; Y83.6 Removal of other organ (partial) (total) as the cause of abnormal reaction of the patient, or of later complication, without mention of misadventure at the time of the procedure; Z71.6 Tobacco abuse counseling; Z90.49 Acquired absence of other specified parts of digestive tract; Z87.440 Personal history of urinary (tract) infections; Z82.49 Family history of ischemic heart disease and other diseases of the circulatory system; Z83.3 Family history of diabetes mellitus; Z83.438 Family history of other disorder of lipoprotein metabolism and other lipidemia; Z79.899 Other long term (current) drug therapy; Y92.89 Other specified places as the place of occurrence of the external cause

== ENCOUNTER 2020-01-31 15:34 | Emergency (ER) | payer OTHER ==
[~2020-01-31] VITALS: Ht 152.4 cm; Wt 123.8 kg
[~2020-01-31 15:34] MED LIST changes: +ZOSYN 3.373.375 GM/5 IV
[2020-01-31] MEDS ORDERED: ROBAXIN-750750 MG PO (19:23)
== END 2020-01-31 19:36 | disposition home or self-care (01) ==
LOC: ED 15:34
DX: S29.011A Strain of muscle and tendon of front wall of thorax, initial encounter (principal); K21.9 Gastro-esophageal reflux disease without esophagitis; E66.9 Obesity, unspecified; Z79.899 Other long term (current) drug therapy; Z90.49 Acquired absence of other specified parts of digestive tract; Z87.891 Personal history of nicotine dependence; X50.1XXA Overexertion from prolonged static or awkward postures, initial encounter; Y93.89 Activity, other specified; Y92.89 Other specified places as the place of occurrence of the external cause; Y99.8 Other external cause status

== ENCOUNTER → 2020-08-21 | Outpatient (CLI) | payer OTHER ==
[~2020-08-21] MED LIST changes: +ROBAXIN-750750 MG PO
[2020-08-21 11:51] LABS: BASO # 0.1 10*3/uL (0.0-0.1); BASO % 0.7 % (0.0-1.0); EOS # 0.2 10*3/uL (0.0-0.4); HEMATOCRIT 43.3 % (37.0-47.0); LYMPH # 2.6 10*3/uL (1.3-4.4); MEAN CELL VOLUME 90.4 fl (81.0-99.0); MEAN CORPUSCULAR HGB 28.6 pg (27.0-31.0); MEAN CORPUSCULAR HGB CONC 31.6 g/dl (33.0-37.0); MEAN PLATELET VOLUME 9.6 fl (9.6-12.3); MONO # 0.5 10*3/uL (0.1-1.0); MONO % 5.6 % (3.0-9.0); NEUT # 4.8 10*3/uL (2.3-7.9); PLATELET COUNT AUTOMATED 249 10*3/uL (130-400); RED BLOOD COUNT 4.79 10*6/uL (4.10-5.10); RED CELL DISTRI WIDTH 12.8 % (0-14.5); WHITE BLOOD COUNT 8.2 10*3/uL (4.8-10.8)
[2020-08-22 07:06] LABS: DHEA SULFATE 92.9 ug/dL (57.3-279.2); PROLACTIN 30.2 ng/mL (4.8-23.3)
[2020-08-23 20:06] LABS: TESTOSTERONE FREE, (DIRECT) 0.7 pg/mL (0.0-4.2)
== END | disposition home or self-care (01) ==
LOC: LAB 10:51
PROVIDERS: ATTEND Obstetrics & Gynecology
DX: Z11.3 Encounter for screening for infections with a predominantly sexual mode of transmission (principal); N93.9 Abnormal uterine and vaginal bleeding, unspecified

== ENCOUNTER → 2020-08-26 | Outpatient (CLI) | payer OTHER ==
[2020-08-26 08:24] LABS: ABG BASE EXCESS 2.5 mmol/L (-2.0-2.0); ARTERIAL BLOOD GAS PH 7.443 (7.35-7.45)
[2020-08-26 09:31] LABS: CHLORIDE 105 mmol/L (98-107); POTASSIUM 3.9 mmol/L (3.5-5.1); SODIUM 139 mmol/L (136-145)
[2020-08-26 09:42] LABS: BUN 7 mg/dl (7-24); CREATININE 0.71 mg/dL (0.55-1.02)
== END | disposition home or self-care (01) ==
LOC: LAB 07:26 → US 07:30
PROVIDERS: Internal Medicine Critical Care Medicine; ATTEND Obstetrics & Gynecology
DX: D25.2 Subserosal leiomyoma of uterus (principal); E22.1 Hyperprolactinemia; Z88.0 Allergy status to penicillin; Z79.899 Other long term (current) drug therapy

== ENCOUNTER → 2020-10-21 | Outpatient (CLI) | payer OTHER | END | disposition home or self-care (01) | LOC: RAD 14:05 | PROVIDERS: ATTEND Preventive Medicine Occupational Medicine | DX: R05 Cough (principal); R06.02 Shortness of breath ==

== ENCOUNTER 2020-10-26 15:55 | Emergency (ER) | payer OTHER ==
[~2020-10-26] VITALS: Ht 152.4 cm; Wt 127.0 kg
[2020-10-26 17:06] LABS: BASO # 0.1 10*3/uL (0.0-0.1); BASO % 0.6 % (0.0-1.0); EOS # 0.2 10*3/uL (0.0-0.4); EOS % 1.7 % (1.0-4.0); HEMATOCRIT 42.9 % (37.0-47.0); LYMPH # 1.9 10*3/uL (1.3-4.4); LYMPH % 21.5 % (27.0-41.0); MEAN CELL VOLUME 90.1 fl (81.0-99.0); MEAN CORPUSCULAR HGB CONC 32.2 g/dl (33.0-37.0); MEAN PLATELET VOLUME 9.4 fl (9.6-12.3); MONO # 0.4 10*3/uL (0.1-1.0); MONO % 5.1 % (3.0-9.0); NEUT # 6.1 10*3/uL (2.3-7.9); NEUT % 70.6 % (47.0-73.0); PLATELET COUNT AUTOMATED 235 10*3/uL (130-400); RED BLOOD COUNT 4.76 10*6/uL (4.10-5.10); RED CELL DISTRI WIDTH 14.2 % (0-14.5); WHITE BLOOD COUNT 8.7 10*3/uL (4.8-10.8)
[2020-10-26 17:28] LABS: ALBUMIN 2.9 gm/dl (3.1-4.5); ALKALINE PHOSPHATASE 109 U/L (45-117); BUN 10 mg/dl (7-24); CHLORIDE 105 mmol/L (98-107); CREATININE 0.72 mg/dL (0.55-1.02); POTASSIUM 3.5 mmol/L (3.5-5.1); SGOT/AST 20 IU/L (3-35); SGPT/ALT 25 U/L (12-78); SODIUM 139 mmol/L (136-145); TOTAL PROTEIN 6.5 gm/dL (6.4-8.2)
== END 2020-10-26 18:04 | disposition home or self-care (01) ==
LOC: ED 15:55
PROVIDERS: Nurse Practitioner Family
DX: R60.0 Localized edema (principal); R05 Cough; F41.9 Anxiety disorder, unspecified; K21.9 Gastro-esophageal reflux disease without esophagitis; F32.9 Major depressive disorder, single episode, unspecified; G43.909 Migraine, unspecified, not intractable, without status migrainosus; F17.200 Nicotine dependence, unspecified, uncomplicated; Z88.2 Allergy status to sulfonamides; Z88.8 Allergy status to other drugs, medicaments and biological substances; Z79.899 Other long term (current) drug therapy; Z90.49 Acquired absence of other specified parts of digestive tract; Z98.890 Other specified postprocedural states

== ENCOUNTER → 2020-11-03 | Outpatient (CLI) | payer OTHER | END | disposition home or self-care (01) | LOC: CARD 11-02 09:30 | PROVIDERS: ATTEND Preventive Medicine Occupational Medicine | DX: R06.02 Shortness of breath (principal); R06.00 Dyspnea, unspecified ==

== ENCOUNTER 2021-06-11 00:24 | Emergency (ER) | payer OTHER ==
[~2021-06-11] VITALS: Ht 152.4 cm; Wt 122.5 kg
[2021-06-11] MEDS ORDERED: CLINDAMYCIN HC300 MG PO (02:14)
== END 2021-06-11 02:34 | disposition home or self-care (01) ==
LOC: ED 00:24
DX: N61.0 Mastitis without abscess (principal); F17.200 Nicotine dependence, unspecified, uncomplicated; Z88.2 Allergy status to sulfonamides; Z79.899 Other long term (current) drug therapy; Z98.890 Other specified postprocedural states; Z90.49 Acquired absence of other specified parts of digestive tract

== ENCOUNTER → 2021-07-24 | Outpatient (CLI) | payer OTHER ==
[~2021-07-24] MED LIST changes: +CLINDAMYCIN HC300 MG PO
== END | disposition home or self-care (01) ==
LOC: RAD 17:25
PROVIDERS: ATTEND Chiropractor Sports Physician
DX: M43.12 Spondylolisthesis, cervical region (principal); M54.5 Low back pain; M54.2 Cervicalgia

== ENCOUNTER 2022-06-21 20:23 | Emergency (ER) | payer OTHER | END 2022-06-21 22:56 | disposition left against medical advice (07) | LOC: ED 20:23 | DX: Z53.21 Procedure and treatment not carried out due to patient leaving prior to being seen by health care provider (principal) ==

== ENCOUNTER → 2022-07-19 | Outpatient (CLI) | payer OTHER ==
[~2022-07-19] MED LIST changes: +PREDNISONE20 M1 PO
== END | disposition home or self-care (01) ==
LOC: LAB 13:19
PROVIDERS: ATTEND Nurse Practitioner Family
DX: R19.7 Diarrhea, unspecified (principal)

== ENCOUNTER 2022-07-25 22:52 | Emergency (ER) | payer OTHER ==
[~2022-07-25 22:52] MED LIST changes: -PREDNISONE20 M1 PO
[2022-07-26] MEDS ORDERED: PREDNISONE20 M1 PO (00:24)
== END 2022-07-26 00:33 | disposition home or self-care (01) ==
LOC: ED 22:52
DX: M79.645 Pain in left finger(s) (principal); F17.200 Nicotine dependence, unspecified, uncomplicated; Z88.2 Allergy status to sulfonamides; Z79.899 Other long term (current) drug therapy; Z79.2 Long term (current) use of antibiotics; Z98.890 Other specified postprocedural states; Z90.49 Acquired absence of other specified parts of digestive tract

== ENCOUNTER → 2023-01-31 | Outpatient (CLI) | payer OTHER ==
[~2023-01-31] MED LIST changes: +PREDNISONE20 M1 PO
[2023-01-31 16:59] LABS: ALKALINE PHOSPHATASE 115 U/L (46-116); BUN 6 mg/dl (9-23); CHLORIDE 106 mmol/L (98-107); CHOLESTEROL 151 mg/dL (<200); LDL CHOLESTEROL 85 mg/dL (9-159); POTASSIUM 4.1 mmol/L (3.4-5.1); SGPT/ALT 17 U/L (10-49); THYROID STIM HORMONE (HS) 1.667 uIU/ml (0.550-4.780); TRIGLYCERIDES 200 mg/dl (<150)
== END | disposition home or self-care (01) ==
LOC: LAB 16:20
PROVIDERS: ATTEND Family Medicine
DX: E11.42 Type 2 diabetes mellitus with diabetic polyneuropathy (principal); E11.69 Type 2 diabetes mellitus with other specified complication; E66.01 Morbid (severe) obesity due to excess calories

== ENCOUNTER → 2023-04-18 | Outpatient (CLI) | payer OTHER | END | disposition home or self-care (01) | LOC: CARD 17:12 | PROVIDERS: ATTEND Family Medicine | DX: R00.2 Palpitations (principal) ==

== ENCOUNTER 2023-06-17 03:29 | Emergency (ER) | payer OTHER ==
[~2023-06-17] VITALS: Ht 152.4 cm; Wt 113.4 kg
[2023-06-17] MEDS ORDERED: ZYRTEC10 M2 PO (03:57)
[2023-06-17] MEDS ORDERED: ELIQUIS2.5 M1 PO (03:57)
== END 2023-06-17 05:50 | disposition home or self-care (01) ==
LOC: ED 03:29
DX: S86.912A Strain of unspecified muscle(s) and tendon(s) at lower leg level, left leg, initial encounter (principal); F41.9 Anxiety disorder, unspecified; F32.A Depression, unspecified; R73.9 Hyperglycemia, unspecified; D64.9 Anemia, unspecified; K21.9 Gastro-esophageal reflux disease without esophagitis; Z86.711 Personal history of pulmonary embolism; Z88.2 Allergy status to sulfonamides; Z88.8 Allergy status to other drugs, medicaments and biological substances; Z90.49 Acquired absence of other specified parts of digestive tract; Z98.890 Other specified postprocedural states; F17.200 Nicotine dependence, unspecified, uncomplicated; X58.XXXA Exposure to other specified factors, initial encounter; Y93.89 Activity, other specified; Y92.89 Other specified places as the place of occurrence of the external cause; Y99.8 Other external cause status

== ENCOUNTER → 2023-06-22 | Outpatient (CLI) | payer OTHER ==
[~2023-06-22] MED LIST changes: +ELIQUIS2.5 M1 PO; +ZYRTEC10 M2 PO
== END | disposition home or self-care (01) ==
LOC: RAD 16:45 → LAB 16:45
PROVIDERS: ATTEND Family Medicine
DX: J98.11 Atelectasis (principal); I26.02 Saddle embolus of pulmonary artery with acute cor pulmonale

== ENCOUNTER 2023-09-16 02:54 | Emergency (ER) | payer OTHER ==
[~2023-09-16] VITALS: Ht 157.4 cm; Wt 116.6 kg
[2023-09-16] MEDS ORDERED: PREDNISONE50 MG PO (03:07)
== END 2023-09-16 03:20 | disposition home or self-care (01) ==
LOC: ED 02:54
DX: L23.9 Allergic contact dermatitis, unspecified cause (principal); F17.210 Nicotine dependence, cigarettes, uncomplicated; Z88.2 Allergy status to sulfonamides; Z79.899 Other long term (current) drug therapy; Z98.890 Other specified postprocedural states; Z90.49 Acquired absence of other specified parts of digestive tract

== ENCOUNTER 2023-10-23 03:19 | Emergency (ER) | payer OTHER ==
[~2023-10-23] VITALS: Ht 152.4 cm; Wt 117.5 kg
[~2023-10-23 03:19] MED LIST changes: +PREDNISONE50 MG PO
[2023-10-23 03:58] LABS: BASO # 0.1 10*3/uL (0.0-0.1); BASO % 0.7 % (0.0-1.0); EOS # 0.2 10*3/uL (0.0-0.4); EOS % 1.5 % (1.0-4.0); HEMATOCRIT 45.7 % (37.0-47.0); LYMPH # 3.1 10*3/uL (1.3-4.4); MEAN CELL VOLUME 93.1 fl (81.0-99.0); MEAN CORPUSCULAR HGB 31.8 pg (27.0-31.0); MEAN CORPUSCULAR HGB CONC 34.1 g/dl (33.0-37.0); MEAN PLATELET VOLUME 9.2 fl (9.6-12.3); MONO # 0.5 10*3/uL (0.1-1.0); MONO % 3.8 % (3.0-9.0); NEUT # 9.1 10*3/uL (2.3-7.9); NEUT % 69.6 % (47.0-73.0); PLATELET COUNT AUTOMATED 285 10*3/uL (130-400); RED BLOOD COUNT 4.91 10*6/uL (4.10-5.10); RED CELL DISTRI WIDTH 12.3 % (0-14.5)
[2023-10-23 04:20] LABS: ALKALINE PHOSPHATASE 115 U/L (46-116); BUN 10 mg/dl (9-23); CHLORIDE 105 mmol/L (98-107); LIPASE 36 U/L (12-53); POTASSIUM 3.9 mmol/L (3.4-5.1); SGPT/ALT 24 U/L (5-49); TOTAL PROTEIN 6.8 gm/dL (6.0-8.0)
[2023-10-23] MEDS ORDERED: REGLAN10 M1 PO (04:49)
== END 2023-10-23 05:25 | disposition home or self-care (01) ==
LOC: ED 03:19
PROVIDERS: Internal Medicine
DX: G43.909 Migraine, unspecified, not intractable, without status migrainosus (principal); H53.8 Other visual disturbances; F41.9 Anxiety disorder, unspecified; K21.9 Gastro-esophageal reflux disease without esophagitis; F32.A Depression, unspecified; Z88.2 Allergy status to sulfonamides; Z88.8 Allergy status to other drugs, medicaments and biological substances; Z90.49 Acquired absence of other specified parts of digestive tract; Z98.890 Other specified postprocedural states; F17.200 Nicotine dependence, unspecified, uncomplicated

== ENCOUNTER 2024-03-06 00:58 | Emergency (ER) | payer OTHER ==
[~2024-03-06] VITALS: Ht 152.4 cm; Wt 122.0 kg
[2024-03-06] MEDS ORDERED: Vancomycin Hydrochloride 250 ML IV ONE (02:05)
[2024-03-06] MEDS ORDERED: Piperacillin Sodium/Tazobact 50 ML IV ONE (02:05)
[2024-03-06 02:17] LABS: BASO # 0.1 10*3/uL (0.0-0.1); BASO % 0.5 % (0.0-1.0); EOS # 0.2 10*3/uL (0.0-0.4); EOS % 1.3 % (1.0-4.0); HEMATOCRIT 46.5 % (37.0-47.0); LYMPH # 3.3 10*3/uL (1.3-4.4); LYMPH % 23.9 % (27.0-41.0); MEAN CELL VOLUME 92.4 fl (81.0-99.0); MEAN CORPUSCULAR HGB 30.8 pg (27.0-31.0); MEAN CORPUSCULAR HGB CONC 33.3 g/dl (33.0-37.0); MEAN PLATELET VOLUME 9.6 fl (9.6-12.3); MONO # 0.6 10*3/uL (0.1-1.0); MONO % 4.3 % (3.0-9.0); NEUT # 9.6 10*3/uL (2.3-7.9); NEUT % 69.7 % (47.0-73.0); PLATELET COUNT AUTOMATED 256 10*3/uL (130-400); RED BLOOD COUNT 5.03 10*6/uL (4.10-5.10); RED CELL DISTRI WIDTH 12.1 % (0-14.5); WHITE BLOOD COUNT 13.8 10*3/uL (4.8-10.8)
[2024-03-06 02:39] LABS: ALKALINE PHOSPHATASE 143 U/L (46-116); BUN 11 mg/dl (9-23); CHLORIDE 102 mmol/L (98-107); SGPT/ALT 16 U/L (5-49)
[2024-03-06] MEDS ORDERED: CEPHALEXIN500 M1 PO (04:56)
[2024-03-06] MEDS ORDERED: VIBRAMYCIN100 MG PO (04:56)
== END 2024-03-06 05:00 | disposition left against medical advice (07) ==
LOC: ED 00:58
PROVIDERS: Emergency Medicine
DX: N61.1 Abscess of the breast and nipple (principal); N61.0 Mastitis without abscess; A41.9 Sepsis, unspecified organism; E11.65 Type 2 diabetes mellitus with hyperglycemia; D64.9 Anemia, unspecified; K21.9 Gastro-esophageal reflux disease without esophagitis; F41.9 Anxiety disorder, unspecified; F32.A Depression, unspecified; G43.909 Migraine, unspecified, not intractable, without status migrainosus; Z53.29 Procedure and treatment not carried out because of patient's decision for other reasons; Z88.2 Allergy status to sulfonamides; Z88.8 Allergy status to other drugs, medicaments and biological substances; F17.200 Nicotine dependence, unspecified, uncomplicated; Z90.49 Acquired absence of other specified parts of digestive tract; Z98.890 Other specified postprocedural states

== ENCOUNTER → 2024-06-18 | Outpatient (CLI) | payer OTHER ==
[~2024-06-18] MED LIST changes: +VIBRAMYCIN100 MG PO
[2024-06-18 10:13] LABS: HEMATOCRIT 44.5 % (37.0-47.0); MEAN CELL VOLUME 89.5 fl (81.0-99.0); MEAN CORPUSCULAR HGB 30.8 pg (27.0-31.0); MEAN CORPUSCULAR HGB CONC 34.4 g/dl (33.0-37.0); MEAN PLATELET VOLUME 9.5 fl (9.6-12.3); RED BLOOD COUNT 4.97 10*6/uL (4.10-5.10); RED CELL DISTRI WIDTH 12.2 % (0-14.5); WHITE BLOOD COUNT 11.4 10*3/uL (4.8-10.8)
[2024-06-18 10:32] LABS: URINE CREATININE RANDOM 86.62 mg/dL
[2024-06-18 10:37] LABS: ALKALINE PHOSPHATASE 142 U/L (46-116); BUN 11 mg/dl (9-23); CHLORIDE 103 mmol/L (98-107); CHOLESTEROL 171 mg/dL (<200); POTASSIUM 4.1 mmol/L (3.4-5.1); SGPT/ALT 17 U/L (5-49); TOTAL PROTEIN 7.3 gm/dL (6.0-8.0); TRIGLYCERIDES 455 mg/dl (<150)
== END | disposition home or self-care (01) ==
LOC: LAB 09:48
PROVIDERS: ATTEND Family Medicine
DX: E11.69 Type 2 diabetes mellitus with other specified complication (principal); E66.01 Morbid (severe) obesity due to excess calories

== ENCOUNTER 2024-08-08 21:21 | Emergency (ER) | payer OTHER ==
[~2024-08-08] VITALS: Ht 152.4 cm; Wt 117.9 kg
== END 2024-08-08 22:05 | disposition home or self-care (01) ==
LOC: ED 21:21
DX: K12.0 Recurrent oral aphthae (principal); F41.9 Anxiety disorder, unspecified; K21.9 Gastro-esophageal reflux disease without esophagitis; F32.A Depression, unspecified; G43.909 Migraine, unspecified, not intractable, without status migrainosus; F17.200 Nicotine dependence, unspecified, uncomplicated; Z88.2 Allergy status to sulfonamides; Z88.8 Allergy status to other drugs, medicaments and biological substances; Z90.49 Acquired absence of other specified parts of digestive tract; Z98.890 Other specified postprocedural states

== ENCOUNTER → 2024-09-24 | Outpatient (CLI) | payer OTHER | END | disposition home or self-care (01) | LOC: LAB 16:08 | PROVIDERS: ATTEND Family Medicine | DX: E11.69 Type 2 diabetes mellitus with other specified complication (principal); E66.01 Morbid (severe) obesity due to excess calories ==

== ENCOUNTER → 2024-10-30 | Outpatient (CLI) | payer OTHER | END | disposition home or self-care (01) | LOC: LAB 16:08 | PROVIDERS: ATTEND Internal Medicine Critical Care Medicine | DX: I11.0 Hypertensive heart disease with heart failure (principal); I50.20 Unspecified systolic (congestive) heart failure ==

== ENCOUNTER → 2024-12-19 | Outpatient (CLI) | payer OTHER | END | disposition home or self-care (01) | LOC: RAD 12:33 | PROVIDERS: ATTEND Family Medicine | DX: M79.642 Pain in left hand (principal) ==

== ENCOUNTER → 2025-03-18 | Outpatient (CLI) | payer OTHER | END | disposition home or self-care (01) | LOC: LAB 11:08 | PROVIDERS: ATTEND Family Medicine | DX: E11.69 Type 2 diabetes mellitus with other specified complication (principal); E66.01 Morbid (severe) obesity due to excess calories ==

== ENCOUNTER → 2025-09-10 | Outpatient (CLI) | payer OTHER ==
[2025-09-10 09:32] LABS: BUN 11 mg/dl (9-23); LDL CHOLESTEROL 82 mg/dL (9-159); SGPT/ALT 20 U/L (5-49)
== END | disposition home or self-care (01) ==
LOC: LAB 08:21
PROVIDERS: ATTEND Family Medicine
DX: E11.69 Type 2 diabetes mellitus with other specified complication (principal); E66.01 Morbid (severe) obesity due to excess calories; E88.810 Metabolic syndrome

== ENCOUNTER → 2025-10-14 | Outpatient (CLI) | payer OTHER | END | disposition home or self-care (01) | LOC: US 13:39 | PROVIDERS: ATTEND Nurse Practitioner Women's Health | DX: Z12.31 Encounter for screening mammogram for malignant neoplasm of breast (principal); D25.9 Leiomyoma of uterus, unspecified; N92.0 Excessive and frequent menstruation with regular cycle; R92.313 Mammographic fatty tissue density, bilateral breasts ==